=== PATIENT | female | born 1965 | race Caucasian/White ===

== ENCOUNTER 2021-12-07 16:54 | Emergency (ER) | payer BC ==
[2021-12-07 17:04] VITALS: RESP 20
[2021-12-07] MEDS ORDERED: ACETAMINOPHEN TAB 500 MG TAB PO STA (17:25)
--- NOTE | 2021-12-07 17:45 | ED ---
Fall HPI - General Chief Complaint: Fall Stated Complaint: Fall,Head Injury Time Seen by Provider: 12/07/21 17:08 Source: patient Mode of arrival: wheelchair - History of Present Illness Initial Comments: Patient is a 56-year-old female who presents to the emergency department due to a fall on ice at 3:30 PM today. Patient did not lose consciousness and is not on blood thinners. Patient hit her head on the ice and landed on her bottom. Patient was able to ambulate after the fall. At this time patient reports a headache in the back and sides of her head. She does note some mild neck pain. She denies pain in any other area of the body. Patient denies fever, chills, generalized weakness, shortness of breath, chest pain, palpitations, dizziness, abdominal pain, nausea, vomiting, diarrhea, and dysuria. - Related Data Allergies Allergy/AdvReac Type Severity Reaction Status Date / Time No Known Allergies Allergy Verified 12/07/21 17:04 Review of Systems ROS Statement: Those systems with pertinent positive or pertinent negative responses have been documented in the HPI. ROS Other: All systems not noted in ROS Statement are negative. Past Medical History Past Medical History: No Reported History History of Any Multi-Drug Resistant Organisms: None Reported Past Surgical History: Appendectomy, Section Past Psychological History: No Psychological Hx Reported Smoking Status: Never smoker Past Alcohol Use History: Occasional Past Drug Use History: None Reported General Exam Limitations: no limitations General appearance: alert, in no apparent distress Head exam: Present: normocephalic, other (Mild swelling in the occipital region of the head, no laceration, erythema, or ecchymosis) Eye exam: Present: normal appearance, PERRL, EOMI. Absent: scleral icterus, conjunctival injection, periorbital swelling Neck exam: Present: normal inspection, tenderness (Posteriorly), full ROM Respiratory exam: Present: normal lung sounds bilaterally. Absent: respiratory distress, wheezes, rales, rhonchi, stridor Cardiovascular Exam: Present: regular rate, normal rhythm, normal heart sounds. Absent: systolic murmur, diastolic murmur, rubs, gallop, clicks GI/Abdominal exam: Present: soft, normal bowel sounds. Absent: distended, tenderness, guarding, rebound, rigid Back exam: Present: normal inspection, full ROM. Absent: tenderness, paraspinal tenderness, vertebral tenderness Neurological exam: Present: alert, oriented X3, CN II-XII intact Psychiatric exam: Present: normal affect, normal mood Skin exam: Present: warm, dry, intact, normal color. Absent: rash Course Vital Signs 12/07/21 17:01 Temperature 97.7 F Pulse Rate 96 Respiratory 20 Rate Blood Pressure 134/91 O2 Sat by Pulse 99 Oximetry Medical Decision Making - Medical Decision Making This is a 56-year-old female who presents with head and neck pain after fall. Thorough history and examination were performed. CT of the head and neck without contrast reveals no acute intracranial process was small posterior scalp hematoma and no evidence of cervical spine fracture. Patient was given Tylenol for pain. On reevaluation patient is sitting up in bed. Results discussed with patient. Patient instructed to take Tylenol or Motrin for pain and to ice the area as needed. Return parameters discussed. Dr. Helton is my attending. Disposition Clinical Impression: Fall Disposition: HOME SELF-CARE Condition: Good Instructions (If sedation given, give patient instructions): Fall Prevention (ED), Hematoma (ED) Additional Instructions: Take Tylenol or Motrin as needed for pain. Pain may be relieved by cing the area 4 times a day for 20 minutes. Follow-up with primary care provider in 1-2 days. Return to the emergency department if you experience new, concerning, or worsening symptoms. Is patient prescribed a controlled substance at d/c from ED?: No Referrals: None,Stated [Primary Care Provider] - 1-2 days Time of Disposition: 18:40
--- NOTE | 2021-12-07 18:29 | CT ---
EXAMINATION TYPE: CT brain cspine wo con CT DLP: 2000 mGycm, Automated exposure control for dose reduction was used. DATE OF EXAM: 12/07/2021 5:58 PM COMPARISON: None.. CLINICAL INDICATION:Female, 56 years old with history of pain; Pt fall, hitting back of head. Denies LOC TECHNIQUE: Brain: Multiple axial CT images of the brain were obtained without IV contrast. Cspine: Axial CT images from the skull base to the inferior aspect of T2 we obtained without intraven ous contrast. Coronal and sagittal reformatted images were also reviewed. FINDINGS: Brain: Extra-axial spaces: No abnormal extra-axial fluid collections. Ventricular system: Within normal limits Cerebral parenchyma: No acute intraparenchymal hemorrhage or mass effect. The petty-white junction is well differentiated. Cerebellum: Unremarkable. Mass effect: No evidence of midline shift. Intracranial vasculature: unremarkable Soft tissues: Posterior scalp, present measuring 36 x 7 mm. Calvarium/osseous structures: No depressed skull fracture. Paranasal sinuses and mastoid air cells: Clear. Visualized orbits: Orbital contents are intact. Cervical spine: Fracture: None. Osseous structures: Multilevel degenerative disc disease changes with endplate spurring and disc oste ophyte complex's. Vertebral alignment: Within normal limits. Spinal canal/Neural Foramina: No evidence of significant spinal canal narrowing. No evidence of signi ficant neural foramina narrowing. Neck soft tissues: Prevertebral soft tissues are within normal limits. Other: The airway is patent. The lung apices are clear. IMPRESSION: 1. No acute intracranial process. 2. Small Posterior scalp hematoma. 3. No evidence of cervical spine fracture. 4. Mild multilevel degenerative disc disease.
[2021-12-07 18:58] VITALS: BP 133/83; PULSE 76; TEMP 98
== END 2021-12-07 18:58 | disposition home or self-care (01) ==
LOC: EC 16:54
DX: R51.9 Headache, unspecified (principal); M54.2 Cervicalgia; Z90.49 Acquired absence of other specified parts of digestive tract
CPT/HCPCS: 70450; 72125; 99284